=== PATIENT | female | born 1995 | race Caucasian/White ===

== ENCOUNTER 2016-04-08 08:11 | Day surgery (SDC) | payer OTHER ==
[~2016-04-08] VITALS: Ht 152.4 cm; Wt 72.2 kg
[~2016-04-08 08:11] MED LIST: CEFDINIR300 MG PO; ENDOCET 5-3251 EACH PO; FERROUS SULFAT325 MG PO; IBUPROFEN800 MG PO; LABETALOL HCL200 MG PO; PRENATAL TABLE1 EACH PO
[2016-04-08 08:57] VITALS: BP 122/71
[2016-04-08] MEDS ORDERED: DOXYCYCLINE MO100 M1 PO (10:59)
[2016-04-08] MEDS ORDERED: MOTRIN800 MG PO (10:59)
[2016-04-08 11:38] VITALS: BP 114/59
[2016-04-08 12:20] VITALS: BP 114/55
== END 2016-04-08 12:28 | disposition home or self-care (01) ==
LOC: SDC 08:11
PROC: 10D17ZZ Extraction of Products of Conception, Retained, Via Natural or Artificial Opening (ICD-10-PCS; principal; 2016-04-08)
DX: O02.1 Missed abortion (principal); Z3A.09 9 weeks gestation of pregnancy; N85.4 Malposition of uterus
CPT/HCPCS: 86850; 86900; 86901; 88305; J1100; J2250; J2405; J3010

== ENCOUNTER 2017-10-13 15:48 | Emergency (ER) | payer OTHER ==
[~2017-10-13] VITALS: Ht 152.4 cm; Wt 67.9 kg
[~2017-10-13 15:48] MED LIST changes: +DOXYCYCLINE MO100 M1 PO; +MOTRIN800 MG PO
[2017-10-13] MEDS ORDERED: CEFTIN250 MG PO (16:10)
[2017-10-13] MEDS ORDERED: NORCO 5/3251 TABLET PO (16:10)
[2017-10-13 16:33] VITALS: BP 151/113
== END 2017-10-13 16:35 | disposition home or self-care (01) ==
LOC: EME 15:48
DX: K04.7 Periapical abscess without sinus (principal); K02.9 Dental caries, unspecified; Z88.0 Allergy status to penicillin
CPT/HCPCS: 99281; 99283